=== PATIENT | male | born 1975 | race Caucasian/White ===

== ENCOUNTER 2018-07-15 08:22 | Outpatient (REF) | payer MEDICARE, MEDICAID, SELFPAY ==
[2018-07-15 13:10] LABS: ALT 41 U/L (12-78); AST 18 U/L (15-37); Albumin 4.4 g/dL (3.4-5.0); Alkaline Phosphatase 77 U/L (46-116); Anion Gap 7.8 mmol/L (3-11); BUN 12 mg/dL (7-18); Bilirubin, Total 0.4 mg/dL (0.2-1.0); CO2 29.2 mmol/L (21.0-32.0); CREATININE 0.87 mg/dL (0.70-1.30); Calcium 9.1 mg/dL (8.5-10.1); Chloride 103 mmol/L (98-107); Cholesterol 118 mg/dL (50-200); Glucose 131 mg/dL (70-100); HDL Cholesterol 30 mg/dL (40-60); LDL CHOLESTEROL 71 mg/dL (<100); Potassium 4.4 mmol/L (3.5-5.1); Sodium 140 mmol/L (136-145); Total Protein 7.1 g/dL (6.4-8.2); Triglyceride 52 mg/dL (30-150)
[2018-07-18 19:37] LABS: TSH (W/Ref FT4) 0.73 uIU/mL (0.358-3.74)
[2018-07-18 19:50] LABS: Vitamin D 25 Total 39.5 ng/ml (30-100)
== END 2018-07-15 08:42 ==
LOC: NCHCN 08:22
PROVIDERS: PCP Nurse Practitioner; Visit Provider Nurse Practitioner
DX: E11.9 Type 2 diabetes mellitus without complications (principal); R53.83 Other fatigue; M94.9 Disorder of cartilage, unspecified
CPT/HCPCS: 80053; 80061; 82306; 83721; 84443

== ENCOUNTER 2018-12-25 10:59 | Emergency (ER) | payer MEDICARE, MEDICAID, SELFPAY ==
[2018-12-25 11:04] VITALS: BP 146/85; PULSE 100; RESP 16; TEMP 36.6; O2SAT 100
--- NOTE | 2018-12-25 11:19 | W.ED.GENAD ---
Discharge Plan Disposition Patient Disposition: HOME Discharge Details Chief Complaint: DentalOral Clinical Impression: Dental caries, Pain, dental Primary Care Provider: Emily Smith ED Provider: Justino Randle Home Meds and New Rx's Prescriptions: New penicillin V potassium 500 mg tablet 500 mg PO QID 7 Days Qty: 28 RF: 0 No Action metformin [Glucophage] 1,000 MG tablet 1,000 mg PO BID@0800,1700 RF: 0 Discharge Instructions Instructions: Dental Caries (ED), Toothache (ED) Additional Instructions: Your CBC shows signs of early infection. It is important that we start her on antibiotics at this time prior to your dental appointment in 1 week. Return to the emergency department should she develop fever, facial redness or severe pain despite antibiotics. You can take Tylenol and Motrin for pain. Referrals: Emily Smith [Primary Care Provider] - Return if symptoms worsen Medical Decision Making This is a nontoxic-appearing 43-year-old male with a right #32 tooth dental carry. Trauma 2 weeks ago led to his symptoms today. No facial erythema or fever here. Plan is to start him on a course of penicillin 500 mg 4 times daily x7 days and have him keep his dental appointment in 1 week. HPI General Date/Time Provider Initiated Documentation: 12/25/18 11:04. HPI Narrative: Patient is a 43-year-old male with a pack-a-day smoking history who presents to the emergency department with right lower tooth pain status post injuring his tooth 2 weeks ago. He is developed worsening pain over the last 24 to 48 hours. He denies any fever. He has had some tenderness over the lower mandible but denies any facial redness Related Data Home Medications Medication Instructions Recorded Confirmed metformin [Glucophage] 1,000 mg PO BID@0800,1700 01/21/17 01/25/17 penicillin V potassium 500 mg PO QID 7 Days #28 tab 12/25/18 Previous Rx's Medication Instructions Recorded penicillin V potassium 500 mg PO QID 7 Days #28 tab 12/25/18 Allergies Allergy/AdvReac Type Severity Reaction Status Date / Time No Known Allergies Allergy Unverified 01/25/17 06:15 General Stated Complaint: DentalOral BEV: 4 Review of Systems Constitutional Denies anorexia, Denies chills, Denies fever(s), Denies headache(s), Denies malaise and Denies night sweats Eyes Denies eye discharge ENT Denies bleeding gums, Denies facial pain and Denies headache(s) Neurologic Denies headache(s) [facility] Social History Smoking/Tobacco Use Status: Current every day Tobacco Type: cigarettes Alcohol Intake: never Drug use: Occasionally Substance use type: marijuana Do you feel safe at home: Yes Do you feel safe in your relationship?: Yes Exam Const General: cooperative, healthy appearing, comfortable and no acute distress Orientation: alert, awake and oriented x3 HENMT Teeth and gingiva: gingiva normal and caries (#32) Throat: posterior oropharynx normal and uvula midline Eyes General: appearance normal, both eyes and all related structures Resp Effort & Inspection: normal respiratory effort Skin General skin exam: no rashes or lesions noted Course Vital Signs Temperature 36.6 C 12/25/18 11:04 Pulse 100 H 12/25/18 11:04 Respiratory Rate 16 12/25/18 11:04 Blood Pressure 146/85 H 12/25/18 11:04 Pulse Oximetry 100 12/25/18 11:04 Temperature 36.6 C 12/25/18 11:04 Temperature Source Temporal Artery Scan 12/25/18 11:04 Pulse 100 H 12/25/18 11:04 Respiratory Rate 16 12/25/18 11:04 Respiratory Effort 12/25/18 11:08 Blood Pressure 146/85 H 12/25/18 11:04 Pulse Oximetry 100 12/25/18 11:04 Oxygen Delivery Method Room Air 12/25/18 11:04 Oxygen Flow Rate 0 12/25/18 11:04
== END 2018-12-25 11:35 | disposition home or self-care (01) ==
LOC: ER 11:23
PROVIDERS: Emergency Provider Physician Assistant; PCP Nurse Practitioner
DX: K02.9 Dental caries, unspecified (principal); K08.89 Other specified disorders of teeth and supporting structures; F17.210 Nicotine dependence, cigarettes, uncomplicated
CPT/HCPCS: 99283

== ENCOUNTER 2019-05-16 15:00 | Emergency (ER) | payer MEDICARE, MEDICAID, SELFPAY ==
[2019-05-16 15:06] VITALS: BP 150/98; PULSE 102; RESP 20; TEMP 36.6; O2SAT 98
--- NOTE | 2019-05-16 15:47 | W.ED.GENAD ---
Discharge Plan Disposition Patient Disposition: HOME Discharge Details Chief Complaint: DentalOral Clinical Impression: Dental infection Primary Care Provider: Emily Smith ED Provider: Amos Spaulding Home Meds and New Rx's Prescriptions: New penicillin V potassium 500 mg tablet 500 mg PO QID Qty: 27 RF: 0 Continued metformin [Glucophage] 1,000 MG tablet 1,000 mg PO BID@0800,1700 RF: 0 lisinopril 20 mg Tablet 20 mg PO DAILY RF: 0 hydrochlorothiazide 12.5 mg Tablet 12.5 mg PO DAILY RF: 0 Discharge Instructions Instructions: Dental Abscess (ED) Additional Instructions: Please take full course of antibiotic as prescribed. Your blood pressure was slightly elevated today at 150/98. Please be sure to follow-up and discuss this with your primary care physician. Please take ibuprofen over the counter. Take 600mg by mouth every 6 hours as needed for pain. Please take acetaminophen (tylenol) - 650mg every 6 hours by mouth as needed for pain. Please contact your dentist today to arrange timely follow-up. Return to the ER for any worsening or new concerning symptoms. Referrals: Emily Smith [Primary Care Provider] - Discharge Data Discharge Date/Time-TO BE ENTERED AT DEPARTURE: 05/16/19 16:07 Medical Decision Making 43-year-old male returns with tooth #32 pain. Suspect periapical abscess. No palpable fluctuance. Patient requesting analgesia. Patient had very similar presentation 01/02. Offered periapical dental block and patient refused. Plan to treat with Tylenol, ibuprofen, penicillin and have him follow-up with his dentist. He has a dental appointment scheduled for the [place] [facility] [place] I encouraged him to keep this appointment even if his tooth is feeling better. Patient was encouraged to return for any worsening or new concerning symptoms. HPI General Mode of arrival: ambulatory. Date/Time Provider Initiated Documentation: 05/16/19 15:31. Limitations to Documentation: no limitations. Information obtained by: patient. HPI Narrative: 43-year-old male presents with chief complaint of dental pain. Patient notes pain in his right lower molar. Patient cracked his tooth about 2 months ago and has had intermittent pain since that time. Over the past 4 days pain is been more severe and persistent. Pain is now severe. Pain worse on palpation of the tooth. No associated fever. Patient requesting analgesia. Patient states he has follow-up with his dentist in about a week. Related Data Home Medications Medication Instructions Recorded Confirmed metformin [Glucophage] 1,000 mg PO BID@0800,1700 01/21/17 05/16/19 hydrochlorothiazide 12.5 mg PO DAILY 05/16/19 lisinopril 20 mg PO DAILY 05/16/19 penicillin V potassium 500 mg PO QID #27 tab 05/16/19 Previous Rx's Medication Instructions Recorded penicillin V potassium 500 mg PO QID #27 tab 05/16/19 Allergies Allergy/AdvReac Type Severity Reaction Status Date / Time No Known Allergies Allergy Unverified 05/16/19 15:10 General Stated Complaint: DentalOral BEV: 5 Review of Systems Constitutional Constitutional: Denies fever(s) ENT Ears, Nose, Mouth, and Throat: Reports as per [facility] Social History Smoking/Tobacco Use Status: Current every day Tobacco Type: cigarettes Alcohol Intake: never Drug use: Occasionally Substance use type: marijuana Do you feel safe at home: Yes Do you feel safe in your relationship?: Yes Exam Const General: cooperative and healthy appearing Orientation: alert and awake HENMT Face and sinus: normal facial exam Teeth and gingiva: poor dentition and other (tooth #32 chronic fracture tender) Throat: posterior oropharynx normal Neck Neck: no lymphadenopathy Resp Auscultation: clear to auscultation bilaterally Cardio Rate: regular rate Rhythm: regular rhythm Heart Sounds: no murmurs Neuro General: alert and awake Cognition: normal cognition Course Vital Signs Vital signs: Vital Signs Temperature 36.6 C 05/16/19 15:06 Pulse 102 H 05/16/19 15:06 Respiratory Rate 20 05/16/19 15:06 Blood Pressure 150/98 H 05/16/19 15:06 Pulse Oximetry 98 05/16/19 15:06 Temperature 36.6 C 05/16/19 15:06 Temperature Source Skin 05/16/19 15:06 Pulse 102 H 05/16/19 15:06 Respiratory Rate 20 05/16/19 15:06 Respiratory Effort Non-Labored 05/16/19 15:10 Blood Pressure 150/98 H 05/16/19 15:06 Blood Pressure Position Sitting 05/16/19 15:06 Pulse Oximetry 98 05/16/19 15:06 Oxygen Delivery Method Room Air 05/16/19 15:06 Oxygen Flow Rate 0 05/16/19 15:06 Pain Level 7 05/16/19 15:06
[2019-05-16] MEDS: Ibuprofen 600 MG TAB PO (16:06)
[2019-05-16] MEDS: Acetaminophen 325 MG TAB 650 MG PO (16:06)
[2019-05-16] MEDS: Penicillin V POTASSIUM 500 MG TAB PO (16:07)
== END 2019-05-16 16:07 | disposition home or self-care (01) ==
PROVIDERS: Emergency Provider Student in an Organized Health Care Education/Training Program; PCP Nurse Practitioner
DX: K04.7 Periapical abscess without sinus (principal)
CPT/HCPCS: 99283

== ENCOUNTER 2020-01-18 11:07 | Emergency (ER) | payer MEDICARE, MEDICAID, SELFPAY ==
[2020-01-18 11:11] VITALS: BP 182/104; PULSE 92; RESP 16; TEMP 36.5; O2SAT 99
--- NOTE | 2020-01-18 11:21 | ED.GENADUL_ITS ---
Discharge Plan Disposition Patient Disposition: HOME Condition: Stable Discharge Details Chief Complaint: RashLesion Clinical Impression: Cellulitis, Bilateral lower extremity edema Primary Care Provider: Emily Smith ED Provider: Angela Spaulding Home Meds and New Rx's Prescriptions: New doxycycline hyclate 100 mg capsule 100 mg PO BID Qty: 19 RF: 0 Continued metformin [Glucophage] 1,000 MG tablet 1,000 mg PO BID@0800,1700 RF: 0 lisinopril 20 mg Tablet 20 mg PO DAILY RF: 0 hydrochlorothiazide 12.5 mg Tablet 12.5 mg PO DAILY RF: 0 penicillin V potassium 500 mg tablet 500 mg PO QID Qty: 27 RF: 0 Discharge Instructions Instructions: Cellulitis (ED), Leg Edema (ED) Additional Instructions: Please return immediately to the emergency department if you develop any new or worsening symptoms, if your condition does not improve as expected, or if you become otherwise concerned. It is extremely important that you call soon as possible to make an appointment to be seen in follow-up for this visit by your primary care doctor. Referrals: Emily Smith [Primary Care Provider] - Discharge Data Discharge Date/Time-TO BE ENTERED AT DEPARTURE: 01/18/20 13:01 Medical Decision Making Rodney Zarate is a 44-year-old man with history of [id number] diabetes, hypertension, sleep apnea who presented to the emergency department with redness surrounding skin wound, clear drainage from her wound over the past 2 days. On exam patient is very well and nontoxic-appearing. +1 edema bilateral lower extremities. Small area of erythema surrounding abrasion to left lower leg with clear drainage. Suspect drainage secondary to chronic edema, possible cellulitis. Differential diagnosis includes but is not limited to cellulitis, dependent edema/venous insufficiency, less likely metabolic/lyte derangement, mild CHF, kidney injury. Doubt DVT. Exam/history at this time is not consistent with acute CHF exacerbation, pulmonary embolism, sepsis, compartment syndrome, myositis, abscess. Plan for screening labs, p.o. antibiotics for cellulitis, outpatient follow-up. D-dimer negative, BNP normal. Blood sugar 380, no AG, CO2 27.8. Plan for antibiotics, outpatient follow-up. I had a lengthy discussion with Patient his results and importance of rapid outpatient follow-up for reassessment of skin infection, leg swelling, and also hyperglycemia. I also had a lengthy discussion with patient regarding return to emergency department precautions, home care for cellulitis, peripheral edema, hyperglycemia and importance of outpatient follow-up. Pt verbalizes understanding of the plan and is amenable. Patient discharged to home with clear plan for outpatient follow-up. All questions were answered. Disposition decision was made weighing the risks and benefits of hospitalization versus outpatient treatment, the risk for further decompensation, and the patient's wishes. Patient was placed on care management list for outpatient follow-up with PCP TD. Medical Records Medical records reviewed: Yes I reviewed the patient's medical records. Lab Data Lab results reviewed: Yes I reviewed the patient's lab results. Labs: Laboratory Tests Range/Units 01/18/20 01/18/20 01/18/20 11:52 11:52 11:52 WBC (4.4-10.8) 10^3/uL 10.67 RBC (4.36-5.78) 10^6/uL 5.23 Hgb (13.5-17.5) g/dL 15.4 Hct (40.0-50.0) % 44.8 MCV (80-95) fL 85.7 MCH (27.0-33.0) pg 29.4 MCHC (32.0-36.0) % 34.4 RDW (11.8-14.1) % 13.2 Plt Count (130-400) 10^3/uL 330 MPV (8.0-11.0) fL 9.6 Immature Gran % 0.7 Neutrophils % 63.0 Lymphocytes % 23.4 Monocytes % 9.3 Eosinophils % 2.9 Basophils % 0.7 Nucleated RBC % % 0 Absolute Neutrophils (1.2-6.7) 10^3/uL 6.73 H Absolute Lymphocytes (1.2-3.4) 10^3/uL 2.50 Absolute Monocytes (0.1-0.8) 10^3/uL 0.99 H Absolute Eosinophils (0.0-0.7) 10^3/uL 0.31 Absolute Basophils (0.0-0.2) 10^3/uL 0.07 D-Dimer (<500) ng/mlFEU 339 Sodium (136-145) mmol/L 136 Potassium (3.5-5.1) mmol/L 4.0 Chloride (98-107) mmol/L 100 Carbon Dioxide (21.0-32.0) mmol/L 27.9 Anion Gap (3-11) mmol/L 8.1 BUN (7-18) mg/dL 14 Creatinine (0.70-1.30) mg/dL 1.09 Estimated GFR/1.73 m2 (mL/min/1.73m2) >= 60.00 Glucose (74-106) mg/dL 380 H Calcium (8.5-10.1) mg/dL 9.0 Total Bilirubin (0.2-1.0) mg/dL 0.3 AST (15-37) U/L 21 ALT (16-63) U/L 68 H Alkaline Phosphatase (46-116) U/L 87 NT-Pro-B Natriuret Pep (<300) pg/mL 17 Total Protein (6.4-8.2) g/dL 7.2 Albumin (3.4-5.0) g/dL 3.7 TSH (0.36-3.74) uIU/mL 1.08 HPI General Mode of arrival: ambulatory . Date/Time Provider Initiated Documentation: 01/18/20 11:11 . Limitations to Documentation: no limitations . Information obtained by: patient, RN notes reviewed and old records reviewed . HPI Narrative: Rodney Zarate is a 44 y/o man with a history of type 2 diabetes, hypertension presenting to the emergency department with rash. Patient reports that 3 or 4 days ago he sustained small cuts to the back of both of his lower legs. Patient reports that he is unsure how he cut them. Patient reports that he has noticed over the past 2 days that he has some redness and clear drainage from the cuts on his left leg. He denies any pain, fevers, vomiting, diarrhea, other rash, numbness, weakness, cough, shortness of breath. Patient reports that he feels well in his usual state of health. Has been eating and drinking as usual. Patient reports that he does have some swelling to both of his lower legs that he has noticed over the past few months. Patient reports that he has tried compression stockings in the past from this, but they gave him a rash. He denies worsening of the swelling. Patient denies orthopnea and sleeps flat in bed with one pillow. He does report waking up short of breath at night but states that he has a history of sleep apnea. Unsure of his tetanus status. Related Data Home Medications Medication Instructions Recorded Confirmed metformin [Glucophage] 1,000 mg PO BID@0800,1700 01/21/17 05/16/19 hydrochlorothiazide 12.5 mg PO DAILY 05/16/19 lisinopril 20 mg PO DAILY 05/16/19 penicillin V potassium 500 mg PO QID #27 tab 05/16/19 doxycycline hyclate 100 mg PO BID #19 cap 01/18/20 Previous Rx's Medication Instructions Recorded penicillin V potassium 500 mg PO QID #27 tab 05/16/19 doxycycline hyclate 100 mg PO BID #19 cap 01/18/20 Allergies Allergy/AdvReac Type Severity Reaction Status Date / Time No Known Allergies Allergy Unverified 01/18/20 11:15 General Stated Complaint: RashLesion BEV: 4 Review of Systems Narrative: Constitutional: denies fevers Eyes: denies eye pain ENT: denies ear pain, dental pain, sore throat Cardiovascular: denies chest pain, reports edema as per HPI Respiratory: denies SOB, cough GI: denies abdominal pain, vomiting, diarrhea : denies flank pain MSK: denies back pain, neck pain, arthralgias, myalgias Skin: Reports left lower leg rash as per HPI denies other rash Neuro: denies headaches, numbness, weakness PFSH Social History Smoking/Tobacco Use Status: Current every day Tobacco Type: cigarettes Alcohol Intake: never Drug use: Occasionally Substance use type: marijuana Do you feel safe at home: Yes Do you feel safe in your relationship?: Yes Exam Narrative Exam Narrative: Constitutional: well and [id number], pleasant, conversing normally HENT: head atraumatic/normocephalic/normal inspection, mucous membranes moist Eyes: conjunctiva normal, sclera normal, pupils 3mm b/l Neck: no stridor, normal ROM, trachea midline Resp: normal work of breathing, no respiratory distress Cardio: normal rate, normal rhythm Skin: warm, dry, normal color, no rash Neuro: alert, not altered, grossly non-focal, normal tone Ext: +1 pitting edema bilateral feet to midcalf, no posterior calf tenderness to palpation, medial left lower leg just proximal to the ankle with 5x5cm mild erythema surrounding small superficial abrasion draining small amount of clear fluid Psych: normal mood, normal affect, normal behavior Course Vital Signs Vital signs: Vital Signs Temperature 36.5 C 01/18/20 11:11 Pulse 92 H 01/18/20 11:11 Respiratory Rate 16 01/18/20 11:11 Blood Pressure 182/104 H 01/18/20 11:11 Pulse Oximetry 99 01/18/20 11:11 Temperature 36.5 C 01/18/20 11:11 Temperature Source Skin 01/18/20 11:11 Pulse 92 H 01/18/20 11:11 Respiratory Rate 16 01/18/20 11:11 Respiratory Effort Non-Labored 01/18/20 11:15 Blood Pressure 182/104 H 01/18/20 11:11 Blood Pressure Position Sitting 01/18/20 11:11 Pulse Oximetry 99 01/18/20 11:11 Oxygen Delivery Method Room Air 01/18/20 11:11 Oxygen Flow Rate 0 01/18/20 11:11 Pain Level 0 01/18/20 11:11
[2020-01-18 12:02] LABS: Abs Immature Grans 0.07 10^3/uL (0.0-0.06); Absolute Basophil Count 0.07 10^3/uL (0.0-0.2); Absolute Eosinophil Count 0.31 10^3/uL (0.0-0.7); Absolute Monocyte Count 0.99 10^3/uL (0.1-0.8); Absolute Neutrophil Count 6.73 10^3/uL (1.2-6.7); Basophils % 0.7; Eosinophils % 2.9; HCT 44.8 % (40.0-50.0); HGB 15.4 g/dL (13.5-17.5); Immature Grans % 0.7; Lymphocytes % 23.4; MCH 29.4 pg (27.0-33.0); MCHC 34.4 % (32.0-36.0); MCV 85.7 fL (80-95); MPV 9.6 fL (8.0-11.0); Monocytes % 9.3; Nucleated RBC 0 %; Platelet Count 330 10^3/uL (130-400); RBC 5.23 10^6/uL (4.36-5.78); RDW 13.2 % (11.8-14.1); RDW-SD 40.8 fL; WBC 10.67 10^3/uL (4.4-10.8)
[2020-01-18 12:23] LABS: ALT 68 U/L (16-63); AST 21 U/L (15-37); Albumin 3.7 g/dL (3.4-5.0); Alkaline Phosphatase 87 U/L (46-116); Anion Gap 8.1 mmol/L (3-11); BUN 14 mg/dL (7-18); Bilirubin, Total 0.3 mg/dL (0.2-1.0); CO2 27.9 mmol/L (21.0-32.0); CREATININE 1.09 mg/dL (0.70-1.30); Chloride 100 mmol/L (98-107); Glucose 380 mg/dL (74-106); NT-proBNP 17 pg/mL (<300); Sodium 136 mmol/L (136-145); TSH (W/Ref FT4) 1.08 uIU/mL (0.36-3.74); Total Protein 7.2 g/dL (6.4-8.2)
[2020-01-18 12:41] LABS: D-Dimer 339 ng/mlFEU (<500)
[2020-01-18] MEDS: Doxycycline Hyclate 100 MG CAP PO (12:58)
--- NOTE | 2020-01-18 13:10 | NUR.NOTE ---
Nursing Note: PCP Referral faxed to Pcp office ( KINJAL GUZMAN)
== END 2020-01-18 13:01 | disposition home or self-care (01) ==
PROVIDERS: Emergency Provider Student in an Organized Health Care Education/Training Program; PCP Nurse Practitioner
DX: S80.812A Abrasion, left lower leg, initial encounter (principal); X58.XXXA Exposure to other specified factors, initial encounter; L03.116 Cellulitis of left lower limb; R60.0 Localized edema; E11.65 Type 2 diabetes mellitus with hyperglycemia; Z79.84 Long term (current) use of oral hypoglycemic drugs; I10 Essential (primary) hypertension
CPT/HCPCS: 36415; 80053; 90471; 99284; 83880; 84443; 85025; 85379

== ENCOUNTER 2020-02-01 13:49 | Outpatient (REF) | payer MEDICARE, MEDICAID, SELFPAY ==
[2020-02-01 18:53] LABS: Calculated LDL 98 mg/dL (<100); Cholesterol 168 mg/dL (<200); HDL Cholesterol 18 mg/dL (40-60); Triglyceride 261 mg/dL (<150)
[2020-02-01 19:39] LABS: Hemoglobin A1C 10.8 % (<5.7)
== END 2020-02-01 14:09 ==
LOC: NCHCN 13:49
PROVIDERS: PCP Nurse Practitioner; Visit Provider Nurse Practitioner
DX: E11.9 Type 2 diabetes mellitus without complications (principal); I10 Essential (primary) hypertension; E78.5 Hyperlipidemia, unspecified
CPT/HCPCS: 80061; 83036

== ENCOUNTER 2021-01-13 21:25 | Outpatient (REF) | payer MEDICARE, MEDICAID, SELFPAY ==
[2021-01-13 17:53] LABS: ALT 44 U/L (16-63); AST 23 U/L (15-37); Albumin 4.2 g/dL (3.4-5.0); Alkaline Phosphatase 96 U/L (46-116); Anion Gap 10.1 mmol/L (3-11); BUN 14 mg/dL (7-18); Bilirubin, Total 0.4 mg/dL (0.2-1.0); CO2 26.9 mmol/L (21.0-32.0); CREATININE 0.9 mg/dL (0.70-1.30); Chloride 106 mmol/L (98-107); Glucose 148 mg/dL (74-106); Potassium 4.1 mmol/L (3.5-5.1); Sodium 143 mmol/L (136-145); Total Protein 7.1 g/dL (6.4-8.2)
[2021-01-14 10:27] LABS: Hepatitis C Ab w Rflx HCV PCR Negative (Negative)
[2021-01-14 11:12] LABS: Hepatitis B Surface Ag Negative (Negative)
== END 2021-01-13 21:26 | disposition home or self-care (01) ==
LOC: NCHCN 21:25
PROVIDERS: PCP Nurse Practitioner; Visit Provider Family Medicine
DX: Z11.59 Encounter for screening for other viral diseases (principal); R74.8 Abnormal levels of other serum enzymes; E11.9 Type 2 diabetes mellitus without complications
CPT/HCPCS: 80053; 86803; 87340

== ENCOUNTER 2021-07-21 18:26 | Outpatient (REF) | payer MEDICARE, MEDICAID, SELFPAY ==
[2021-07-21 21:24] LABS: ALT 26 U/L (16-63); AST 14 U/L (15-37); Albumin 4.4 g/dL (3.4-5.0); Alkaline Phosphatase 103 U/L (46-116); BUN 14 mg/dL (7-18); Bilirubin, Total 0.8 mg/dL (0.2-1.0); CREATININE 1.1 mg/dL (0.70-1.30); Calcium 9.2 mg/dL (8.5-10.1); Chloride 101 mmol/L (98-107); Glucose 129 mg/dL (74-106); Lipase 131 U/L (73-393); Sodium 142 mmol/L (136-145); Total Protein 7.5 g/dL (6.4-8.2)
[2021-07-21 21:35] LABS: HCT 50.9 % (40.0-50.0); HGB 16.9 g/dL (13.5-17.5); MCH 28.7 pg (27.0-33.0); MCHC 33.2 % (32.0-36.0); MCV 86.4 fL (80-95); MPV 10.1 fL (8.0-11.0); Platelet Count 309 10^3/uL (130-400); RBC 5.89 10^6/uL (4.36-5.78); RDW 13.6 % (11.8-14.1); RDW-SD 43.6 fL; WBC 15.24 10^3/uL (4.4-10.8)
[2021-07-22 15:30] LABS: COVID-19 RT-PCR UVMMC Result Negative (Negative)
== END 2021-07-21 18:27 | disposition home or self-care (01) ==
LOC: LBN 18:26
PROVIDERS: PCP Nurse Practitioner; Visit Provider Nurse Practitioner Family
DX: R11.2 Nausea with vomiting, unspecified (principal); Z20.822 Contact with and (suspected) exposure to COVID-19
CPT/HCPCS: 80053; 83690; 85027; U0003; U0005

== ENCOUNTER 2021-08-19 14:12 | Outpatient (CLI) | payer MEDICARE, MEDICAID, SELFPAY ==
--- NOTE | 2021-08-19 11:44 | DI.RAD_ITS ---
Exam(s) XR KNEE RT 3V AP,LAT,RACQUEL EXAM: XR KNEE RT 3V AP,LAT,RACQUEL CLINICAL HISTORY: RT KNEE PAIN, M25.561, ? OA. TECHNIQUE: 2D digital imaging was performed of the right knee. Three views obtained. AP, lateral an d PA tunnel views were obtained. COMPARISON: No exams were available for comparison FINDINGS: BONES: No acute fracture is present. No bony destructive lesion is seen. There is a small enthesophyt e at the superior patella. JOINTS: Moderate joint space narrowing is seen in the medial femoral tibial and patellofemoral joint. Periarticular spurring is seen involving all 3 joint compartments. No joint effusion is seen. SOFT TISSUE: Normal. IMPRESSION: Moderate degenerative changes of the right knee. DATA REPOSITORY: RADIATION DOSE DELIVERED:
== END 2021-08-19 14:32 ==
PROVIDERS: PCP Nurse Practitioner; Visit Provider Family Medicine
DX: M25.561 Pain in right knee (principal); M17.11 Unilateral primary osteoarthritis, right knee
CPT/HCPCS: 73562

== ENCOUNTER 2022-09-24 18:01 | Outpatient (REF) | payer MEDICARE, MEDICAID, SELFPAY ==
[2022-09-24 17:24] LABS: Microalb ug/mg Crea 8.7 ug/mg Cr
== END 2022-09-24 18:02 | disposition home or self-care (01) ==
LOC: NCHCN 18:01
PROVIDERS: PCP Nurse Practitioner; Visit Provider Family Medicine
DX: E11.9 Type 2 diabetes mellitus without complications (principal)
CPT/HCPCS: 82043; 82570

== ENCOUNTER 2024-12-19 16:20 | Outpatient (REF) | payer MEDICARE, MEDICAID, SELFPAY ==
[2024-12-19 17:18] LABS: COMMENT (LAB VIEW ONLY) 49.29 mg/dL; Microalb ug/mg Crea 29.2 ug/mg Cr
== END 2024-12-19 16:21 | disposition home or self-care (01) ==
LOC: NCHCN 16:20
PROVIDERS: PCP Family Medicine; Visit Provider Student in an Organized Health Care Education/Training Program
DX: E11.9 Type 2 diabetes mellitus without complications (principal)
CPT/HCPCS: 82043; 82570

== ENCOUNTER 2025-01-01 16:22 | Outpatient (REF) | payer MEDICARE, MEDICAID, SELFPAY ==
[2025-01-01 17:33] LABS: Anion Gap 10.4 mmol/L (3-11); BUN 10 mg/dL (7-18); CO2 28.6 mmol/L (21.0-32.0); Calcium 8.8 mg/dL (8.5-10.1); Chloride 104 mmol/L (98-107); Estimated GFR 109.17 (mL/min/1.73m2); Glucose 81 mg/dL (74-106); Potassium 4.1 mmol/L (3.5-5.1); Sodium 143 mmol/L (136-145)
== END 2025-01-01 16:23 | disposition home or self-care (01) ==
LOC: NCHCN 16:22
PROVIDERS: PCP Family Medicine; Visit Provider Student in an Organized Health Care Education/Training Program
DX: I10 Essential (primary) hypertension (principal)
CPT/HCPCS: 80048

== ENCOUNTER 2025-01-23 15:04 | Outpatient (REF) | payer MEDICARE, MEDICAID, SELFPAY ==
[2025-01-23 14:24] LABS: Anion Gap 8.8 mmol/L (3-11); BUN 17 mg/dL (7-18); CO2 30.2 mmol/L (21.0-32.0); Calcium 9.0 mg/dL (8.5-10.1); Chloride 102 mmol/L (98-107); Estimated GFR 82.81 (mL/min/1.73m2); Glucose 223 mg/dL (74-106); Potassium 4.0 mmol/L (3.5-5.1); Sodium 141 mmol/L (136-145)
== END 2025-01-23 15:05 | disposition home or self-care (01) ==
LOC: NCHCN 15:04
PROVIDERS: PCP Family Medicine; Visit Provider Student in an Organized Health Care Education/Training Program
DX: I10 Essential (primary) hypertension (principal)
CPT/HCPCS: 80048